=== PATIENT | female | born 1985 | race Caucasian/White ===

== ENCOUNTER 2019-09-28 20:36 | Inpatient (IN) ==
[2019-09-28] MEDS: LACTATED RINGER'S 1,000 ML IV PRN (20:54)
[2019-09-28] MEDS ORDERED: OXYTOCIN 30 UNITS/500 ML BAG IV PRN ×2 (21:26)
[2019-09-28] MEDS ORDERED: CEFAZOLIN 1000MG 1,000 MG/7.5 ML SYR IV PRN (21:26)
--- NOTE | 2019-09-28 21:33 | History & Physical Report ---
Date of Service September 28, 2019 Assessment & Plan (1) : Admit to L&D. EFM/toco, IV fluids. Labs. Will start IV pitocin. Ancef for GBS+. Hives allergy to PCN. History of Present Illness Chief Complaint: PROM Primary Care Provider: NO PCP 34yo @ 41 05/27 here with gush of clear fluid at 8pm tonight. No vaginal bleeding. + movement. Occasional contractions. 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) FOB to get tested--neg (Tano Rueda) GBS -POSITIVE Treat in labor Allergies Allergy/AdvReac Type Severity Reaction Status Date / Time codeine Allergy hives Verified 09/26/19 09:01 Penicillins Allergy hives Verified 09/26/19 09:01 Home Medications Home Medications Medication Instructions Recorded Confirmed Type [id number] oil PO 02/18/19 09/26/19 History Patient History Medical History Asthma Encounter for anatomic survey LGSIL on Pap smear of cervix Varicella Surgical History No significant past surgical history Family History Grandfather (Paternal) Diabetes Grandmother (Maternal) Breast cancer Mother Sleep disorder Aunt Cervical cancer Social History Preferred Language: Pakistani Communication Ability: Effective Beliefs That Will Affect Care: None marital status: marital status details: Tano Rueda (32) [phone] Current Living Situation: Spouse Current Living Situation Comment: dog current occupational status: employed current occupation: Asst professor @ [employer] Other Information That Helps Us Care for You: No Feels Safe at Home: Yes Safety Concerns: Feels Safe At This Time Smoking Status: Never smoker Hx Alcohol Use: No Hx Substance Use: No Review of Systems All systems reviewed & are unremarkable except as noted in HPI & below Physical Exam Physical Exam: FHT Cat 1 [place] occasional ctx SVE: 1-2/80/-2 Constitutional: WD/WN, vitals as above Respiratory: normal respiratory effort, lungs clear to auscultation no respiratory distress Cardiovascular: Rate/Rhythm: regular rate and regular rhythm Gastrointestinal (Abdomen): Inspection/Auscultation: abdomen normal to inspection Percussion/Palpation: abdomen soft; abdomen nontender Gravid. No s/s chorio or abruption. Skin: no rashes, warm and dry Psychiatric: A+Ox3, euthymic affect Results & Data Vital Signs (Past 12 Hours) Vital Signs Temp Pulse Resp BP 09/28/19 21:10 103 H 140/85 09/28/19 20:48 36.7 C 20 09/28/19 20:47 104 H 138/82 Coding Level of Care Code None Diagnoses Z34.90
[2019-09-28] MEDS ORDERED: CEFAZOLIN 2000MG 2,000 MG/15 ML SYR IV ONE (21:45)
[2019-09-28 21:49] LABS: Hematocrit (blood only) 38.2 % (37-47); Hemoglobin 12.7 g/dL (12.0-16.0); Mean Corpuscular Hemoglobin 28.7 pg (25-34); Mean Corpuscular Volume 86.4 fL (80-100); Mean Platelet Volume 12.4 fL (7.4-10.4); Platelet Count 211 K/uL (130-400); RDW Coefficient of Variation 15.8 % (11.5-14.5); RDW Standard Deviation 49.1 fL (36.4-46.3); Red Blood Count 4.42 M/uL (4.2-5.4); White Blood Count 10.71 K/uL (4.8-10.8)
[2019-09-28 21:51] LABS: Mean Corpuscular Hgb Conc 33.2 g/dL (32-36)
[2019-09-28 22:07] LABS: Albumin Level 2.9 gm/dl (3.4-5.0); BUN Creatinine Ratio 18.6 (10-20); Calcium 8.9 mg/dl (8.5-10.1); Est GFR (African American) 119.5; Est GFR (Non-African American) 103.1
[2019-09-28 22:14] LABS: Albumin Globulin Ratio 0.7 (0.9-2); Bilirubin,Total 0.1 mg/dl (0.2-1); Globulin 4.4 gm/dl (2.5-4.0); Total Protein 7.3 gm/dl (6.4-8.2)
[2019-09-28] MEDS ORDERED: fentaNYL 2MCG/ML ROPIV 1.25MG/ML 100 ML BAG EPI ONE (22:53)
[2019-09-28] MEDS ORDERED: fentaNYL citrate 100 MCG/2 ML VIAL ONE (22:53)
[2019-09-28] MEDS ORDERED: BUPIVACAINE 0.25% 30 ML VIAL ONE (22:53)
[2019-09-28] MEDS ORDERED: ePHEDrine sulfate 50 MG/ML AMP ONE (22:53)
[2019-09-28] MEDS ORDERED: ePHEDrine sulfate 50 MG/ML AMP IV PRN (22:55)
[2019-09-28] MEDS ORDERED: NALOXONE HCL 1 MG in SODIUM CHLORIDE 0.9% 1000ML 1,000 ML IV PRN (22:55)
[2019-09-28] MEDS ORDERED: NALOXONE HCL 0.4 MG/1 ML VIAL/CARP IV PRN (22:55)
[2019-09-28] MEDS ORDERED: DiphenhydrAMINE HCL 50 MG/ML VIAL IV PRN (22:55)
[2019-09-28] MEDS ORDERED: fentaNYL 2MCG/ML ROPIV 1.25MG/ML 100 ML BAG EPI PRN (22:55)
--- NOTE | 2019-09-28 22:57 | Anesthesiology Consultation ---
Date of Service September 28, 2019 Assessment & Plan (1) Encounter for pre-operative examination: Chart Review Chart Review: Patient NOT seen in Pre Admission Testing and Acceptable Risk for Labor Epidural Consults Requested none History Height/Weight Height: 5 ft 6 in Weight: 87.09 kg Allergies Allergy/AdvReac Type Severity Reaction Status Date / Time codeine Allergy hives Verified 09/26/19 09:01 Penicillins Allergy hives Verified 09/26/19 09:01 Medications Home Medications Medication Instructions Recorded Confirmed Last Taken [id number] oil PO 02/18/19 09/26/19 Unknown Active Medications Generic Name Dose Route Start Last Admin Trade Name Freq PRN Reason Stop Dose Admin Oxytocin 30 units in 500 mls @ 3 mls/hr 09/28/19 21:26 09/28/19 22:33 Pitocin IV 09/30/19 21:25 0.18 units/hr .Q24H PRN 3 mls/hr Labor Induction/Augmentation Titration Protocol 0.18 UNITS/HR Past Medical History Medical History Asthma Encounter for anatomic survey LGSIL on Pap smear of cervix Varicella Exercise / Class Metabolic Activity II 4-5 Yardwork/Stairs/Walk up hill Past Family History Family History Grandfather (Paternal) Diabetes Grandmother (Maternal) Breast cancer Mother Sleep disorder Aunt Cervical cancer Past Surgical History Surgical History No significant past surgical history Past Anesthesia History No Hx of Anesthesia Complications and No Family Hx of Anesthesia Complications History of PONV No Hx of PONV and No Hx of Motion Sickness Social History Smoking Status: Never smoker Do You Dip or Chew Tobacco: No Hx Alcohol Use: No Hx Substance Use: No Physical Exam Vital Signs Last Vital Signs Temp 36.7 C 09/28/19 20:48 Pulse 101 H 09/28/19 21:59 Resp 20 09/28/19 20:48 BP 121/82 09/28/19 21:59 Testing Laboratory Results 09/28/19 21:39 09/28/19 21:39
[2019-09-29] MEDS: LACTATED RINGER'S 1,000 ML IV PRN ×2 (00:37→06:04)
[2019-09-29] MEDS ORDERED: Nursing to Pharmacy Communication ONE (02:28)
[2019-09-29] MEDS ORDERED: ONDANSETRON INJ 2 MG/ML 2 ML VIAL ONE (05:33)
[2019-09-29] MEDS ORDERED: ONDANSETRON INJ 2 MG/ML 2 ML VIAL IV PRN (05:45)
--- NOTE | 2019-09-29 07:27 | Labor Progress Brief Note ---
Date of Service September 29, 2019 Subjective Comfortable with epidural. Not yet feeling urge to push. FHT Cat 1 [place] Q 1-2 SVE 8-9cm per RN Continue to monitor, anticipate . Results & Data Vital Signs (Past 12 Hours) Vital Signs Temp Pulse Resp BP Pulse Ox 09/29/19 07:22 36.9 C 88 20 97 09/29/19 07:17 86 96 09/29/19 07:16 86 125/75 09/29/19 07:12 86 96 09/29/19 07:07 93 H 96 09/29/19 07:02 94 H 96 09/29/19 07:00 93 H 20 118/66 09/29/19 06:57 91 H 94 09/29/19 06:52 96 H 94 09/29/19 06:47 97 H 93 09/29/19 06:45 94 H 121/78 09/29/19 06:42 92 H 93 09/29/19 06:37 96 H 94 09/29/19 06:32 98 H 96 09/29/19 06:30 36.9 C 99 H 20 121/79 09/29/19 06:27 93 H 96 09/29/19 06:22 92 H 92 09/29/19 06:17 85 92 09/29/19 06:14 97 H 125/72 09/29/19 06:12 84 92 09/29/19 06:07 93 H 97 09/29/19 06:02 81 96 09/29/19 06:00 82 20 130/73 09/29/19 05:57 91 H 97 09/29/19 05:52 97 H 97 09/29/19 05:47 89 93 09/29/19 05:44 82 107/58 L 09/29/19 05:42 86 95 09/29/19 05:40 36.5 C 20 09/29/19 05:37 101 H 94 09/29/19 05:32 112 H 98 09/29/19 05:30 20 09/29/19 05:29 94 H 109/61 09/29/19 05:27 90 96 09/29/19 05:22 106 H 97 09/29/19 05:17 108 H 96 09/29/19 05:15 101 H 115/68 09/29/19 05:12 92 H 96 09/29/19 05:07 89 97 09/29/19 05:02 104 H 93 09/29/19 05:01 95 H 127/76 09/29/19 05:00 18 09/29/19 04:57 100 H 92 09/29/19 04:55 36.5 C 09/29/19 04:52 105 H 93 09/29/19 04:47 93 H 95 09/29/19 04:44 96 H 123/76 09/29/19 04:42 98 H 121/78 97 09/29/19 04:40 93 H 120/80 09/29/19 04:38 105 H 117/74 09/29/19 04:37 113 H 97 09/29/19 04:36 95 H 123/79 09/29/19 04:34 97 H 117/78 09/29/19 04:32 93 H 116/77 97 09/29/19 04:30 99 H 20 117/79 09/29/19 04:28 100 H 124/83 09/29/19 04:27 100 H 97 09/29/19 04:22 90 97 09/29/19 04:17 94 H 124/79 96 09/29/19 04:12 95 H 97 09/29/19 04:07 82 98 09/29/19 04:02 105 H 97 09/29/19 03:59 20 09/29/19 03:57 82 95 09/29/19 03:52 85 96 09/29/19 03:47 89 98 09/29/19 03:46 85 128/73 09/29/19 03:42 78 93 09/29/19 03:37 75 96 09/29/19 03:32 79 90 09/29/19 03:30 78 20 118/68 09/29/19 03:28 76 90 09/29/19 03:27 74 91 09/29/19 03:22 79 90 09/29/19 03:19 80 90 09/29/19 03:17 76 120/69 91 09/29/19 03:15 36.7 C 09/29/19 03:12 70 95 09/29/19 03:07 72 94 09/29/19 03:02 80 95 09/29/19 03:01 75 140/76 09/29/19 02:57 80 94 09/29/19 02:52 79 94 05/11/20 02:47 78 94 09/29/19 02:45 75 121/62 09/29/19 02:42 88 96 09/29/19 02:37 77 96 09/29/19 02:32 75 122/61 96 09/29/19 02:30 20 09/29/19 02:27 76 98 09/29/19 02:22 71 97 09/29/19 02:17 90 97 09/29/19 02:16 83 142/88 H 09/29/19 02:12 105 H 96 09/29/19 02:07 89 97 09/29/19 02:02 80 95 09/29/19 02:01 85 141/81 H 09/29/19 01:59 18 09/29/19 01:57 85 95 09/29/19 01:52 82 96 09/29/19 01:47 78 97 09/29/19 01:46 80 129/76 09/29/19 01:42 75 96 09/29/19 01:37 88 95 09/29/19 01:35 96 H 87 L 09/29/19 01:32 76 95 09/29/19 01:31 81 128/80 09/29/19 01:30 18 09/29/19 01:27 92 H 93 09/29/19 01:22 80 92 09/29/19 01:17 77 94 09/29/19 01:16 82 128/76 09/29/19 01:12 86 94 09/29/19 01:07 79 92 09/29/19 01:02 76 92 09/29/19 01:00 37.0 C 83 20 114/68 09/29/19 00:57 77 93 09/29/19 00:52 74 93 09/29/19 00:47 85 92 09/29/19 00:46 79 119/67 09/29/19 00:42 79 93 09/29/19 00:37 88 95 09/29/19 00:32 87 93 09/29/19 00:31 79 124/72 09/29/19 00:30 20 09/29/19 00:27 88 93 09/29/19 00:22 91 H 94 09/29/19 00:17 100 H 94 09/29/19 00:16 89 122/78 09/29/19 00:12 92 H 94 09/29/19 00:07 82 94 09/29/19 00:02 84 94 09/29/19 00:01 97 H 130/77 09/29/19 00:00 18 09/28/19 23:57 100 H 93 09/28/19 23:52 88 94 09/28/19 23:47 83 92 09/28/19 23:45 93 H 18 129/74 09/28/19 23:42 93 H 94 09/28/19 23:41 88 130/74 09/28/19 23:37 83 130/74 95 09/28/19 23:35 20 09/28/19 23:32 91 H 94 09/28/19 23:30 20 09/28/19 23:29 93 H 131/76 09/28/19 23:27 96 H 122/73 93 09/28/19 23:25 92 H 20 126/76 09/28/19 23:24 83 128/73 09/28/19 23:23 37.0 C 09/28/19 23:22 85 129/68 94 09/28/19 23:20 82 18 128/69 09/28/19 23:18 84 128/68 09/28/19 23:17 93 H 20 93 09/28/19 23:16 100 H 158/73 H 94 09/28/19 23:15 20 09/28/19 23:12 109 H 94 09/28/19 23:09 104 H 94 09/28/19 23:07 96 H 95 09/28/19 23:02 97 H 96 09/28/19 23:00 104 H 135/87 09/28/19 21:59 101 H 121/82 09/28/19 21:10 103 H 140/85 09/28/19 20:48 36.7 C 20 09/28/19 20:47 104 H 138/82 Coding Level of Care Code None
[2019-09-29] MEDS ORDERED: HYDROCORTISONE ACETATE 25 MG SUPP PR PRN (09:37)
[2019-09-29] MEDS ORDERED: BENZOCAINE 20% AER SPR 82.5 GM CAN EXT PRN (09:37)
[2019-09-29] MEDS ORDERED: DIPHTHERIA/TETANUS/PERTUSSIS 0.5 ML SYR/VIAL IM ONE (09:37)
[2019-09-29] MEDS ORDERED: bisacodyL 10 MG SUPP PR PRN (09:37)
[2019-09-29] MEDS ORDERED: ACETAMINOPHEN 325 MG TAB PO PRN (09:37)
[2019-09-29] MEDS ORDERED: SUPERCREAM 0.870% 15 GM JAR EXT PRN (09:37)
[2019-09-29] MEDS ORDERED: OXYTOCIN 30 UNITS/500 ML BAG IV PRN (09:37)
--- NOTE | 2019-09-29 09:41 | Anesthesia Procedure Note ---
Date of Service September 29, 2019 Anesthesia Post Epidural Note Vital Signs Vital Signs: Temp Pulse Resp BP Pulse Ox 36.9 C 100 H 20 122/69 93 09/29/19 07:22 09/29/19 09:29 09/29/19 07:22 09/29/19 09:29 09/29/19 08:57 Pain Intensity Bilateral Back: Pain Intensity: 0 Notes Mental Status: alert / awake / arousable and participated in evaluation Nausea / Vomiting: adequately controlled Pain: adequately controlled Airway Patency, RR, SpO2: stable & adequate BP & HR: stable & adequate Hydration State: stable & adequate Neuraxial Anesthesia: was administered and sensory block is resolving Anesthetic Complications: no major complications apparent and Pt Satisfied with anesthetic care Epidural: Removed without complications and With tip intact
[2019-09-29] MEDS: IBUPROFEN 600 MG TAB PO PRN ×2 (10:02→20:03)
--- NOTE | 2019-09-29 15:07 | Delivery Summary ---
DATE OF OPERATION: 09/29/2019 PROCEDURE: Normal spontaneous vaginal delivery with right labial and left periurethral laceration repair. SURGEON: Carson Silva MD PREOPERATIVE DIAGNOSES: 1. Single intrauterine at 41 weeks 2 days gestational age. 2. Spontaneous labor. 3. GBS positive. POSTOPERATIVE DIAGNOSES: Same status post delivery. ESTIMATED BLOOD LOSS: 300 mL. DRAINS: Straight cath at the completion of the case. URINE OUTPUT: Approximately 300 mL via straight catheterization. COMPLICATIONS: None. FINDINGS: Viable female with weight of 7 pounds 2.7 ounces and Apgars of 7 and 9 at 1 and 5 minutes respectively. INDICATIONS: Sandra is a 34-year-old admitted at 41 weeks 1 day gestational age for spontaneous rupture of membranes and early labor. On initial evaluation, the patient was found to be 1-2 cm dilated, 80% effaced, -2 station. The patient was started on oxytocin per regular protocol and later received an epidural for anesthesia. The patient progressed in labor over approximately 8-10 hour period to achieve 10 cm dilated, 100% effaced, +2 station, at which time she felt the urge to push and pushed for approximately 15 minutes to achieve delivery. DESCRIPTION OF PROCEDURE: The patient progressed to 10 cm dilated, 100% effaced, +2 station, pushed over intact perineum with epidural anesthesia and delivered a viable female with weight and Apgars as noted above. Head of the delivered in YARITZA position, rest into right transverse. No nuchal cord was noted. Body and shoulders quickly followed. was delivered to maternal abdomen and was noted to be vigorous soon after delivery. A 1-minute delayed cord clamping was initiated, after which the cord was double clamped and cut. was taken to the waiting nursery staff for further evaluation. Cord blood was then obtained. Attention was then turned to delivering the placenta, which was delivered intact, 3-vessel cord, gentle cord traction. On inspection of perineum, vagina, and cervix, there was noted to be a right labial laceration and a left periurethral laceration, which were repaired with 3-0 Vicryl with interrupted stitch. Needle, sponge and instrument counts were correct at the completion of the case. Both mother and were stable in the immediate post-delivery period. I attest to the content of the Intraoperative Record and any orders documented therein. Any exception s are noted below.
[2019-09-29] MEDS: DOCUSATE SODIUM 100 MG CAP PO SCH (20:03)
[2019-09-30] MEDS: IBUPROFEN 600 MG TAB PO PRN ×5 (00:33→19:38)
[2019-09-30 06:00] LABS: Hematocrit (blood only) 35.3 % (37-47); Hemoglobin 11.6 g/dL (12.0-16.0); Mean Corpuscular Hemoglobin 28.9 pg (25-34); Mean Corpuscular Hgb Conc 32.9 g/dL (32-36); Mean Platelet Volume 11.7 fL (7.4-10.4); Platelet Count 178 K/uL (130-400); RDW Coefficient of Variation 16.4 % (11.5-14.5); RDW Standard Deviation 52.4 fL (36.4-46.3); Red Blood Count 4.01 M/uL (4.2-5.4); White Blood Count 13.98 K/uL (4.8-10.8)
--- NOTE | 2019-09-30 06:32 | Obstetrical Progress Note ---
Date of Service September 30, 2019 Assessment & Plan (1) Status post vaginal delivery: Sandra is a 34 yo on PPD 1 after at 41w 2d - GBS +, treated with Ancef during labor. Blood Type O+, Rubella immune -Vitals reviewed and WNL -Hemoglobin reviewed: 11.6 -patient is doing clinically well Continue routine post care. - After discharge will have 6 week followup with Ricardo. Admission and Anticipated Discharge Date Admission Date: September 28, 2019 Supervising Physician Co-Signing Physician Notes Patient seen and evaluated and agree with the above findings and plan. Continue routine care Subjective Ambulation: ambulating normally Voiding: no voiding problems Passing Gas:: Yes Diet Tolerance:: regular diet Lochia:: Small Feeding Type:: breast feeding Review of Systems Constitutional: no fever, no chills and no sweats Eyes: no worsening vision Respiratory: no cough and no dyspnea Cardiovascular: no chest pain, no palpitations, no edema and no calf pain Gastrointestinal: no nausea and no vomiting Genitourinary: no dysuria and no urinary frequency Neurologic: no headache(s) Physical Exam Constitutional: WD/WN, vitals as above no acute distress Respiratory: normal respiratory effort, lungs clear to auscultation does not use accessory muscles Auscultation: no crackles, no rales, no rhonchi, no wheezes and no pleural rub Cardiovascular: Rate/Rhythm: regular rate and regular rhythm Heart Sounds: normal S1 and normal S2; no gallop, no murmur and no cardiac rub Extremities: no calf tenderness and no pedal edema Gastrointestinal (Abdomen): Inspection/Auscultation: normal bowel sounds; abdomen not distended Percussion/Palpation: abdomen soft Genitourinary: Uterus: fundus firm, palpable 1 cm below the umbilicus Results & Data ([facility]) Vital Signs (Past 12 Hours) Vital Signs Temp Pulse Resp BP Pulse Ox 09/30/19 03:02 36.5 C 79 18 118/76 95 09/29/19 23:50 36.6 C 84 18 120/75 97 09/29/19 19:45 36.5 C 87 18 127/86 98 Resident Activity Tracking Resident Involvement: Resident Care Provided Care Provided: [facility]
[2019-09-30] MEDS: PRENATAL VITAMIN 1 TAB PO SCH (08:46)
[2019-09-30] MEDS: DOCUSATE SODIUM 100 MG CAP PO SCH ×2 (08:47→21:34)
[2019-09-30] MEDS ORDERED: bisacodyL 5 MG TABEC PO SCH (20:00)
[2019-10-01] MEDS: IBUPROFEN 600 MG TAB PO PRN ×3 (00:07→13:10)
[2019-10-01 06:19] LABS: Hematocrit (blood only) 32.4 % (37-47); Hemoglobin 10.2 g/dL (12.0-16.0)
--- NOTE | 2019-10-01 06:22 | Obstetrical Progress Note ---
Date of Service October 01, 2019 Assessment & Plan (1) Status post vaginal delivery: Sandra is a 34 yo on PPD 2 after at 41w 2d -GBS +, treated with Ancef during labor. Blood Type O+, Rubella immune -Vitals reviewed and WNL -patient is doing clinically well Discharge instructions reviewed. Ready for discharge. - After discharge will have [address] Silva. Admission and Anticipated Discharge Date Admission Date: September 28, 2019 Supervising Physician Co-Signing Physician Notes Resident Physician Supervision Note: I interviewed and examined the patient. Discussed with Dr. Vallecillo and agree with findings and plan as documented in the note. Any exceptions or clarifications are listed here: Doing well. Instructions reviewed. Plan d/c. Documented By: Marisa Soto MD, FACOG Subjective Ambulation: ambulating normally Voiding: no voiding problems Passing Gas:: Yes Diet Tolerance:: regular diet Lochia:: Small Feeding Type:: breast feeding Review of Systems Constitutional: no fever, no chills and no sweats Eyes: no worsening vision Respiratory: no cough and no dyspnea Cardiovascular: no chest pain, no palpitations, no edema and no calf pain Gastrointestinal: no nausea and no vomiting Genitourinary: no dysuria and no urinary frequency Neurologic: no headache(s) Physical Exam Constitutional: WD/WN, vitals as above no acute distress Respiratory: normal respiratory effort, lungs clear to auscultation does not use accessory muscles Auscultation: no crackles, no rales, no rhonchi, no wheezes and no pleural rub Cardiovascular: Rate/Rhythm: regular rate and regular rhythm Heart Sounds: normal S1 and normal S2; no gallop, no murmur and no cardiac rub Extremities: no calf tenderness and no pedal edema Gastrointestinal (Abdomen): Inspection/Auscultation: normal bowel sounds; abdomen not distended Percussion/Palpation: abdomen soft Psychiatric: Affect: euthymic affect Genitourinary: Uterus: fundus firm, palpable 2 cm below the umbilicus Results & Data ([facility]) Vital Signs (Past 12 Hours) Vital Signs Temp Pulse Resp BP 09/30/19 23:15 36.5 C 78 18 100/56 L 09/30/19 19:25 36.6 C 91 H 18 109/70 Resident Activity Tracking Resident Involvement: Resident Care Provided Care Provided: OB Delivery
[2019-10-01] MEDS: PRENATAL VITAMIN 1 TAB PO SCH (08:24)
[2019-10-01] MEDS: DOCUSATE SODIUM 100 MG CAP PO SCH (08:24)
== END 2019-10-01 15:33 | disposition home or self-care (01) | DRG 807 ==
LOC: OPB 20:36 → 4S1 20:37 → 4S2 09-29 12:12

== ENCOUNTER 2021-11-15 20:33 | Inpatient (IN) ==
[2021-11-15] MEDS ORDERED: OXYTOCIN 30 UNITS/500 ML BAG IV PRN (20:43)
[2021-11-15] MEDS ORDERED: ceFAZolin 2000MG 2,000 MG/15 ML SYR IV ONE (20:45)
--- NOTE | 2021-11-15 20:52 | History & Physical Report ---
Date of Service November 15, 2021 Assessment & Plan (1) Elderly multigravida, currently : (2) Carrier of group B Streptococcus: Plan: early labor for planned elective induction in am. offered admit now, iv. labs. ancef for gbs pos. possible need for pitocin aug. epidural when she desires. she agrees. fhts categ 1. History of Present Illness Chief Complaint: early labor Primary Care Provider: Екатерина Flores MD 36yo at 39+wks eghossein presents to L&D with regular ctx. Nurse exam /2 and ctx about q3min. No rom, no vb. PNC c/b 1. gbs pos, allergy pcn, hives 2. ama 3. CF carrier, spouse is not PNL rh pos, ri, gbs pos OBH: x 1 GYNH: nlpaps Allergies Allergy/AdvReac Type Severity Reaction Status Date / Time codeine Allergy hives Verified 11/15/21 11:38 Penicillins Allergy hives Verified 11/15/21 11:38 Home Medications Medication Instructions Recorded Confirmed Type [id number] oil PO 02/18/19 11/15/21 History [ Gummy] Patient History Medical History (Updated 10/26/21 @ 11:17 by [place]) Asthma Encounter for anatomic survey LGSIL on Pap smear of cervix Varicella Surgical History No significant past surgical history Family History Grandfather (Paternal) Diabetes Grandmother (Maternal) Breast cancer Mother Sleep disorder Aunt Cervical cancer Breast cancer Denies family history of Ovarian cancer Prostate cancer Colorectal cancer Social History Smoking Status: Never smoker Hx Alcohol Use: No Hx Substance Use: No Preferred Language: Swedish Communication Ability: Effective Visual Impairment: No Limitations Hearing Ability: Normal Beliefs That Will Affect Care: None marital status: marital status details: Tano Rueda (34) [phone] Current Living Situation: Spouse and Family Current Living Situation Comment: Lives with , daughter and dog current occupational status: employed current occupation: Asst professor @ [employer] Feels Safe at Home: Yes Assistive Devices: None Review of Systems as per Subjective / HPI Physical Exam Constitutional: WD/WN, vitals as above Respiratory: normal respiratory effort, lungs clear to auscultation Cardiovascular: Rate/Rhythm: regular rate and regular rhythm Gastrointestinal (Abdomen): soft gravid nt efw 7-8# Musculoskeletal: no edema nontender calves Neurologic: grossly normal Psychiatric: A+Ox3, euthymic affect Genitourinary: Manual OB Exam: + cervical dilation (per nurse in hpi) OB Exam Monitor Tracing: + external FHT monitor used, + external uterine monitor used (q3min), + category I and + normal FHT variability Results & Data ([facility]) Vital Signs (Past 12 Hours) Vital Signs Pulse BP 11/15/21 20:44 78 139/85 Coding Level of Care Code None Diagnoses Elderly multigravida, currently O09.529 Carrier of group B Streptococcus Z22.330
[2021-11-15 21:09] LABS: Hematocrit (blood only) 36.1 % (37-47); Hemoglobin 12.1 g/dL (12.0-16.0); Mean Corpuscular Hgb Conc 33.5 g/dL (32-36); Mean Corpuscular Volume 89.4 fL (80-100); Mean Platelet Volume 12.7 fL (7.4-10.4); Platelet Count 189 K/uL (130-400); RDW Coefficient of Variation 14.5 % (11.5-14.5); RDW Standard Deviation 47.5 fL (36.4-46.3); Red Blood Count 4.04 M/uL (4.2-5.4); White Blood Count 9.27 K/uL (4.8-10.8)
[2021-11-15] MEDS: LACTATED RINGER'S 1,000 ML IV PRN ×2 (21:24→22:35)
[2021-11-15] MEDS ORDERED: ePHEDrine sulfate 50 MG/ML AMP ONE (21:42)
[2021-11-15] MEDS ORDERED: fentaNYL citrate 100 MCG/2 ML VIAL ONE (21:42)
[2021-11-15] MEDS ORDERED: SODIUM CHLORIDE 0.9% INJ 10 ML VIAL ONE (21:42)
[2021-11-15] MEDS ORDERED: fentaNYL 2MCG/ML ROPIVACAINE 1.25MG/ML 100 ML BAG EPI ONE ×2 (21:43→21:53)
[2021-11-15] MEDS ORDERED: BUPIVACAINE 0.25% 30 ML VIAL ONE (21:43)
[2021-11-15] MEDS ORDERED: NALOXONE HCL 1 MG in SODIUM CHLORIDE 0.9% 1000ML 1,000 ML IV PRN (23:34)
[2021-11-15] MEDS ORDERED: ePHEDrine sulfate 50 MG/ML AMP IV PRN (23:34)
[2021-11-15] MEDS ORDERED: fentaNYL 2MCG/ML ROPIVACAINE 1.25MG/ML 100 ML BAG EPI PRN (23:34)
[2021-11-15] MEDS ORDERED: NALOXONE HCL 0.4 MG/1 ML VIAL/CARP IV PRN (23:34)
[2021-11-15] MEDS ORDERED: NALBUPHINE HCL INJ 10 MG/ML AMP IV PRN (23:34)
[2021-11-15] MEDS ORDERED: ONDANSETRON INJ 2 MG/ML 2 ML VIAL IV PRN (23:34)
[2021-11-15] MEDS ORDERED: diphenhydrAMINE 50 MG/ML VIAL IV PRN (23:34)
--- NOTE | 2021-11-15 23:34 | Anesthesiology Consultation ---
Date of Service November 15, 2021 Assessment & Plan ASA ASA2 Proposed Anesthesia Anesthesia Type: Labor Epidural Risk / Benefits Reviewed With: PT / POA / Parent / Guardian, Accepts Plan and Informed Consent Obtained History Height/Weight Height: 5 ft 6 in Weight: 82.735 kg Allergies Allergy/AdvReac Type Severity Reaction Status Date / Time codeine Allergy hives Verified 11/15/21 11:38 Penicillins Allergy hives Verified 11/15/21 11:38 Medications Home Medications Medication Instructions Recorded Confirmed Last Taken [id number] oil 1 cap PO DAILY 02/18/19 11/15/21 11/14/21 21:00 [ Gummy] Active Medications Generic Name Dose Route Start Last Admin Trade Name Freq PRN Reason Stop Dose Admin Lactated Ringer's 1,000 mls @ 125 mls/hr 11/15/21 20:43 11/15/21 21:24 Lr IV 11/17/21 20:42 999 mls/hr .Q8H PRN Administration L&D Protocol Protocol Past Medical History Medical History (Updated 10/26/21 @ 11:17 by No [place]) Asthma Encounter for anatomic survey LGSIL on Pap smear of cervix Varicella Exercise / Class Metabolic Activity II 4-5 Yardwork/Stairs/Walk up hill Past Family History Family History Grandfather (Paternal) Diabetes Grandmother (Maternal) Breast cancer Mother Sleep disorder Aunt Cervical cancer Breast cancer Denies family history of Ovarian cancer Prostate cancer Colorectal cancer Past Surgical History Surgical History No significant past surgical history Past Anesthesia History No Hx of Anesthesia Complications and No Family Hx of Anesthesia Complications History of PONV No Hx of PONV and No Hx of Motion Sickness Social History Smoking Status: Never smoker Hx Alcohol Use: No Hx Substance Use: No Review of Systems denies fever/cough/ colds/ chest pain/ SOB/ LUANNE denies LUANNE Physical Exam Vital Signs Last Vital Signs Temp 36.7 C 11/15/21 21:38 Pulse 70 11/15/21 23:31 Resp 18 11/15/21 20:39 BP 152/84 H 11/15/21 23:24 Pulse Ox 98 11/15/21 23:31 ENMT Mouth: no TMJ abnormality and no dentition abnormality Thyromental Distance: > or= 3.5 Finger Breadths Mallampati Class: II Neck neck extension not limited Respiratory normal respiratory effort; no respiratory distress Auscultation: lungs clear to auscultation bilaterally Cardiovascular Rate/Rhythm: regular rate and regular rhythm Neurologic moves all extremities Psychiatric Orientation: alert and oriented x 3 Testing Laboratory Results 11/15/21 20:59
[2021-11-16] MEDS ORDERED: fentaNYL citrate 100 MCG/2 ML VIAL ONE (00:11)
[2021-11-16] MEDS ORDERED: BUPIVACAINE 0.25% 30 ML VIAL ONE (00:11)
[2021-11-16] MEDS ORDERED: NURSING L&D Epidural Breakthrough Pain Update ONE (00:14)
[2021-11-16] MEDS ORDERED: OXYTOCIN 30 UNITS/500 ML BAG IV PRN ×2 (01:08→02:46)
[2021-11-16] MEDS ORDERED: CALCIUM CARBONATE 500 MG CHEWABLE TAB PO PRN (01:08)
--- NOTE | 2021-11-16 01:20 | Communication Note ---
Date of Service: November 16callled to assess pt pain control. Pt was comfortable for about an hour. Pt complaining of back pain and burning front pain. pt 4 cm. I felt it was best to replace the epidural. L2-l3 identified by landmarks. serile prep/drape/glove/mask 1% lidocaine infiltrated. 17 gauge touey advanced to DELANO to air at6 cm. easy catheter thread. I bolused 3 cc of 1 .5% lido with epi. Negative IV/IT. catheter secured with tegaderm. Bolused 5cc of 0.25% bupivicaine and 100 mcg of fentanyl. Pt with improved symptoms.
--- NOTE | 2021-11-16 01:50 | Labor Progress Brief Note ---
Date of Service November 16, 2021 Subjective still with pain despite epidural but ok with arom Assessment & Plan (1) Elderly multigravida, currently : (2) Carrier of group B Streptococcus: Plan: good cx change now in active labor. will see how arom helps labor pattern. fhts categ 1. abx for gbs pos. watch bp. right now seems likely due to pain. may need to add labs. Admission and Anticipated Discharge Date Admission Date: November 15, 2021 Physical Exam Constitutional: WD/WN, vitals as above Genitourinary: Manual OB Exam: + cervical dilation 7 cm, + cervical effacement 100%, + station 0 and + amniotic fluid (arom) clear OB Exam Monitor Tracing: + external FHT monitor used, + external uterine monitor used (q3), + category I and + normal FHT variability Results & Data ([facility]) Vital Signs (Past 12 Hours) Vital Signs Temp Pulse Resp BP Pulse Ox Pulse Ox 11/16/21 01:47 88 151/104 H 11/16/21 01:46 87 99 11/16/21 01:44 78 165/84 H 11/16/21 01:41 80 143/78 H 99 11/16/21 01:38 96 H 129/82 11/16/21 01:36 84 100 11/16/21 01:34 91 H 147/92 H 11/16/21 01:32 81 144/85 H 11/16/21 01:31 80 96 11/16/21 01:29 84 159/89 H 11/16/21 01:26 86 131/75 100 11/16/21 01:22 85 145/77 H 11/16/21 01:21 87 97 11/16/21 01:19 96 H 141/77 H 11/16/21 01:16 85 141/81 H 97 11/16/21 01:13 93 H 146/81 H 11/16/21 01:11 89 98 11/16/21 01:10 88 151/80 H 11/16/21 01:07 75 143/75 H 11/16/21 01:06 76 96 11/16/21 01:05 93 H 136/71 11/16/21 01:02 88 150/80 H 11/16/21 01:01 89 95 11/16/21 00:59 81 127/68 91 11/16/21 00:56 92 H 97 11/16/21 00:55 86 124/69 11/16/21 00:54 86 135/78 11/16/21 00:52 97 H 167/95 H 11/16/21 00:51 102 H 97 11/16/21 00:46 87 98 11/16/21 00:41 85 97 11/16/21 00:36 81 97 11/16/21 00:31 83 100 11/16/21 00:28 81 94 11/16/21 00:27 97.9 F 18 11/16/21 00:26 86 99 11/16/21 00:25 82 155/75 H 11/16/21 00:21 82 99 11/16/21 00:16 84 92 11/16/21 00:11 83 99 11/16/21 00:10 81 138/77 11/16/21 00:06 84 99 11/16/21 00:01 83 98 11/15/21 23:56 83 136/79 97 11/15/21 23:51 85 100 11/15/21 23:46 75 100 99 11/15/21 23:41 78 99 11/15/21 23:39 83 145/86 H 11/15/21 23:36 78 97 11/15/21 23:31 70 98 11/15/21 23:26 75 97 11/15/21 23:24 76 152/84 H 11/15/21 23:21 81 99 11/15/21 23:16 83 99 11/15/21 23:11 75 98 11/15/21 23:08 80 145/74 H 11/15/21 23:06 78 100 11/15/21 23:05 78 142/74 H 11/15/21 23:02 70 136/69 11/15/21 23:01 72 97 11/15/21 23:00 73 130/70 11/15/21 22:56 74 152/86 H 98 11/15/21 22:53 71 155/89 H 11/15/21 22:51 82 141/66 H 11/15/21 22:50 82 97 11/15/21 22:47 76 143/70 H 11/15/21 22:45 80 97 11/15/21 22:44 80 162/83 H 11/15/21 22:42 83 153/83 H 11/15/21 22:40 84 146/86 H 98 11/15/21 22:35 89 97 11/15/21 22:30 85 98 11/15/21 22:25 87 97 11/15/21 22:20 80 98 11/15/21 22:15 89 98 11/15/21 22:09 76 97 11/15/21 22:04 80 100 11/15/21 21:59 80 99 11/15/21 21:38 98.1 F 78 139/85 11/15/21 20:44 78 139/85 11/15/21 20:39 98.1 F 18 Coding Level of Care Code None Diagnoses Elderly multigravida, currently O09.529 Carrier of group B Streptococcus Z22.330
[2021-11-16] MEDS ORDERED: LIDOCAINE 1% LOCAL 20 ML VIAL ONE (02:24)
--- NOTE | 2021-11-16 02:40 | Delivery Summary ---
Vaginal Delivery Summary Date of Service November 16, 2021 Vaginal Delivery Summary The patient dilated to complete and pushed to deliver a viable male Apgars 8 and 9 via over intact perineum. Mouth and nose bulb suctioned at perineum. Shoulders and body delivered with ease. was vigorous and crying at . Cord clamped at 40 seconds of life and infant to maternal abdomen where the cord was then doubly clamped and cut. Placenta delivered spontaneously and intact, three-vessel cord. Hemostasis achieved with dilute pitocin and uterine massage. Right labial laceration reapproximated with 4-0 vicryl after 1% local lidocaine anesthesia. Cervix and sulci intact. EBL 300 cc. Mother and baby stable in recovery. [facility] Vaginal Delivery Charge Delivery Type Details:
[2021-11-16] MEDS ORDERED: BENZOCAINE 20% AER SPR 82.5 GM CAN EXT PRN (02:46)
[2021-11-16] MEDS ORDERED: ACETAMINOPHEN 325 MG TAB PO PRN (02:46)
[2021-11-16] MEDS ORDERED: HYDROCORTISONE ACETATE 25 MG SUPP PR PRN (02:46)
[2021-11-16] MEDS ORDERED: bisacodyL 10 MG SUPP PR PRN (02:46)
[2021-11-16] MEDS ORDERED: oxyCODONE/ACETAMINOPHEN 5mg/325mg TAB PO PRN (02:46)
[2021-11-16] MEDS ORDERED: DIPHTHERIA/TETANUS/PERTUSSIS 0.5 ML SYR/VIAL IM ONE (02:46)
[2021-11-16] MEDS ORDERED: OXYTOCIN 20 UNITS in LACTATED RINGER'S 1,000 ML IV SCH (02:46)
[2021-11-16] MEDS: IBUPROFEN 600 MG TAB PO PRN ×4 (03:01→23:13)
[2021-11-16] MEDS ORDERED: ceFAZolin 1000MG 1,000 MG/7.5 ML SYR IV PRN (03:43)
[2021-11-16] MEDS: PRENATAL VITAMIN 1 TAB PO SCH (08:58)
[2021-11-16] MEDS: DOCUSATE SODIUM 100 MG CAP PO SCH ×2 (08:58→20:33)
--- NOTE | 2021-11-16 09:35 | Anesthesia Procedure Note ---
Date of Service November 16, 2021 Anesthesia Post Epidural Note Vital Signs Vital Signs: Temp Pulse Resp BP Pulse Ox 97.9 F 58 L 18 112/72 99 11/16/21 07:56 11/16/21 07:56 11/16/21 07:56 11/16/21 07:56 11/16/21 07:56 Pain Intensity Bilateral Back: Pain Intensity: 7 Perineal: Pain Intensity: 3 Notes Mental Status: alert / awake / arousable and participated in evaluation Nausea / Vomiting: adequately controlled Pain: adequately controlled Airway Patency, RR, SpO2: stable & adequate BP & HR: stable & adequate Hydration State: stable & adequate Neuraxial Anesthesia: was administered, sensory block is resolving and see Notes below (Patient reports continued numbness to right upper thigh, decreased sensation in L3/4 distribution, educated patient on potential parasthesia from epidural placement vs. positioning in stirrups for delivery, will re-assess later ) Anesthetic Complications: no major complications apparent and Pt Satisfied with anesthetic care Epidural: Removed without complications and With tip intact
[2021-11-16 09:51] LABS: Hematocrit (blood only) 35.8 % (37-47); Hemoglobin 12.1 g/dL (12.0-16.0); Mean Corpuscular Hemoglobin 30.3 pg (25-34); Mean Corpuscular Hgb Conc 33.8 g/dL (32-36); Mean Corpuscular Volume 89.7 fL (80-100); Mean Platelet Volume 12.5 fL (7.4-10.4); Platelet Count 163 K/uL (130-400); RDW Coefficient of Variation 14.6 % (11.5-14.5); RDW Standard Deviation 47.9 fL (36.4-46.3); Red Blood Count 3.99 M/uL (4.2-5.4); White Blood Count 16.52 K/uL (4.8-10.8)
[2021-11-16 10:06] LABS: Albumin Globulin Ratio 1.1 (0.9-2); Albumin Level 3.1 gm/dl (3.4-5.0); BUN Creatinine Ratio 13.9 (10-20); Bilirubin,Total 0.2 mg/dl (0.2-1.0); Calcium 8.7 mg/dl (8.5-10.1); Creatinine Clr Calc Pharmacy 118.2 ml/min; Est GFR (African American) 125.8 ml/min; Est GFR (Non-African American) 108.5 ml/min; Globulin 2.9 gm/dl (2.5-4.0); Potassium 4.1 mmol/L (3.5-5.1)
[2021-11-17] MEDS: PRENATAL VITAMIN 1 TAB PO SCH (07:52)
[2021-11-17] MEDS: DOCUSATE SODIUM 100 MG CAP PO SCH (07:52)
[2021-11-17] MEDS: IBUPROFEN 600 MG TAB PO PRN (07:53)
--- NOTE | 2021-11-17 08:37 | Obstetrical Progress Note ---
Date of Service November 17, 2021 Assessment & Plan (1) Encounter for care and examination after delivery: Day 1 s/p . Doing well. Stable for discharge Subjective Ambulation: ambulating normally Voiding: no voiding problems Passing Gas:: Yes Diet Tolerance:: regular diet Lochia:: Moderate Feeding Type:: breast feeding Physical Exam Gastrointestinal (Abdomen) Inspection/Auscultation: abdomen normal to inspection; abdomen not distended Percussion/Palpation: abdomen soft; abdomen nontender, no guarding and abdomen not rigid Genitourinary OB Exam Abdomen: + fundal height Fundus: + firm and + relation to umbilicus (Below); not tender or not boggy Results & Data ([facility]) Vital Signs (Past 12 Hours) Vital Signs Temp Pulse Resp BP Pulse Ox 11/17/21 04:15 36.5 C 73 16 110/74 98 11/16/21 23:10 36.5 C 64 16 110/74 97
== END 2021-11-17 11:40 | disposition home or self-care (01) | DRG 807 ==
LOC: OPB 20:33 → 4S1 20:34 → 4E2 11-16 05:28
DX: O70.0 First degree perineal laceration during delivery; Z3A.39 39 weeks gestation of pregnancy; Z88.0 Allergy status to penicillin; Z88.5 Allergy status to narcotic agent; O09.523 Supervision of elderly multigravida, third trimester; O99.824 Streptococcus B carrier state complicating childbirth; Z37.0 Single live birth; Z14.1 Cystic fibrosis carrier